=== PATIENT | female | born 1965 | race Caucasian/White ===

== ENCOUNTER 2016-08-03 05:06 | Day surgery (SDC) | payer BC ==
[~2016-08-03] VITALS: Ht 162.6 cm; Wt 59.9 kg
--- NOTE | ~2016-08-03 | O ---
[address] [address] OPERATIVE REPORT Name: LIONEL VICKERS Room #: 150-2 [facility]..#: [id number] Admission: 08/03/16 Attend Phys: Tony Fuentes MD Discharge: Date of : 63 Report #: [id number] THIS REPORT FOR: //name// CC: Levi Fuentes DATE OF SERVICE: 08/03/2016 SERVICE: Orthopedics. FACILITY: [facility]. SURGEON: Tony Fuentes MD. ASSISTANTS: None. PREOPERATIVE DIAGNOSES: 1. Right hip pain. 2. Right hip femoroacetabular impingement. 3. Right hip labral tear. POSTOPERATIVE DIAGNOSES: 1. Right hip pain. 2. Right hip femoroacetabular impingement. 3. Right hip labral tear. 4. Right hip chondromalacia. PROCEDURE: 1. Right hip arthroscopic subspine acetabuloplasty. 2. Right hip arthroscopic labral repair. 3. Right hip arthroscopic cam osteoplasty with capsular closure. COMPLICATIONS: None. DRAINS: None. SPECIMENS: None. ESTIMATED BLOOD LOSS: 5 mL. ANESTHESIA TYPE: General endotracheal with single shot regional nerve block. IV FLUIDS: 1 L. TRACTION TIME: One hour [address] [address] OPERATIVE REPORT Name: LIONEL VICKESR Room #: 150-2 [facility] Ranjana#: [id number] Admission: 08/03/16 Attend Phys: Tony Fuentes MD Discharge: Date of : 63 Report #: [id number] FINDINGS: 1. Grade 2 and 3 chondromalacia of the anterior superior portion of the acetabulum adjacent to the location of the cam deformity. 2. Labral repair performed with [employer] Nano[employer]ack anchor with tape x 4. 3. Capsular repair completed with #2 Vicryl x 3. HISTORY AND INDICATIONS: The patient is a 51-year-old female with a longstanding history of persistent right hip pain that was recalcitrant to conservative treatment. She had excessive amount of conservative measures including physical therapy, injections, medicines, rest, activity modification and soft tissue modalities but unfortunately none of these provided sufficient relief. She had radiographic evidence of femoroacetabular impingement, particularly with a large cam bump with alpha angle of approximately 70 degrees noted at the apex of the deformity. There was also MRI confirmation of labral tear and suggestion of some rim chondromalacia. Risks, benefits, alternatives and indications for surgery were discussed with her in detail. The risks include but not limited to pain, bleeding, infection, injury to nerves or blood vessels, persistent pain despite surgical intervention, failure of any repairs, reconstruction, progression of any preexisting chondral injury and complications related to anesthesia such as stroke, heart attack, pulmonary complications, thromboembolic disease and . Despite these risks, she wished to proceed. PROCEDURE IN DETAIL: After right lower extremity was correctly identified in the preoperative holding area as the operative extremity, the patient underwent placement of a single shot regional nerve block by the anesthesia team. She was then taken to the operating room and placed supine on operating table and general endotracheal anesthesia was induced without complication. All bony prominences and subcutaneous nerves were padded appropriately. Prophylactic antibiotics were administered at appropriate time. We placed bilateral lower extremities in traction boots and then brought the C-arm in to confirm that there was adequate distraction that could be applied across the hip as well as to map out the femoral head neck junction deformity and identify the extent of the cam lesion, which extended all the way across the anterior aspect of the femoral neck. Right lower extremity was then prepped and draped in usual standard sterile fashion. Time-out procedure was performed. Traction was applied in the right lower extremity. Total traction time was 74 minutes. Standard anterolateral viewing portal was established and then a mid anterior working portal and then transverse capsulotomy was performed. Fluoroscopic and arthroscopic visualization was performed for this portion of the procedure and then diagnostic arthroscopy revealed fraying at the chondral labral junction as well as softening of the articular cartilage in the anterior superior acetabulum. The labrum was torn as well and was loosely fixed to the acetabular rim, so it was felt that acetabular labral repair with chondroplasty [address] [address] OPERATIVE REPORT Name: VICKERSLIONEL Room #: 150-2 [facility] M..#: [id number] Admission: 08/03/16 Attend Phys: Tony Fuentes MD Discharge: Date of : 63 Report #: [id number] was most appropriate. We had had a discussion about labral reconstruction, but I felt that the labral tissue itself was high of quality for repair and I thought that the evidence of articular cartilage chondromalacia is likely contributing pain generator and that reconstruction was not the optimal treatment for her. Therefore, the capsule was reflected off the dorsal aspect of the labrum. There was noted to be an adhesion of the medial capsule to the labrum and this was released bluntly and then the labrum was dissected off of the acetabular rim. A abbey was used to provide minimal rim burring to allow for bleeding surface only without any rim resection performed. A subspine acetabuloplasty was used to recess the subspine region and then the acetabular labral repair was performed after a distal anterolateral accessory portal was established in standard technique. A total of 4 labral tape anchors were used with a mattress suture technique and then an anatomic repair was achieved. A shaver was then used to perform chondroplasty to smooth the loose softened cartilage at the acetabular labral rim and then the traction was let down. A T capsulotomy was created after traction stitches were applied x 2 in the distal limb of the transverse capsulotomy and then under arthroscopic visualization and fluoroscopic confirmation, a thorough cam osteochondroplasty was performed. Instruments were removed from the hip. X-rays were taken. There was an additional area laterally that needed to be resected. The scope was placed back in. The cam osteoplasty was completed. The bony debris was lavaged out of the hip and then a capsular repair performed with #2 Vicryl x 3. The instruments were removed from the hip. Arthroscopic effusion was drained. The final x-rays were taken and then the portal sites were closed with a deep followed by superficial 2-0 Monocryl suture. Sterile dressing was applied. The patient was awakened from anesthesia and taken to recovery room in stable condition. There were no complications. All counts were recorded as correct. <ELECTRONICALLY SIGNED> By: Tony Fuentes MD 08/03/16 1714 [id number] Tony Fuentes MD /nt
[~2016-08-03 05:06] MED LIST: AMBIEN 5 MG TABL5 M1 PO; GEODON40 MG PO; LITHIUM CARBON300 M7 PO; MULTIVITAMINS PO; TRAZODONE HCL50 MG PO; VIMOVO 500-201 EACH PO
[2016-08-03 07:15] VITALS: BP 120/66
[2016-08-03 11:31] VITALS: BP 120/66
== END 2016-08-03 12:00 | disposition home or self-care (01) ==
LOC: OR 05:06 → TBA 05:06 → OR 09:08
DX: M25.851 Other specified joint disorders, right hip (principal); M94.251 Chondromalacia, right hip; F41.9 Anxiety disorder, unspecified; F31.9 Bipolar disorder, unspecified; S73.101A Unspecified sprain of right hip, initial encounter; X58.XXXA Exposure to other specified factors, initial encounter; Y93.89 Activity, other specified; Y92.89 Other specified places as the place of occurrence of the external cause; Y99.8 Other external cause status; Z90.49 Acquired absence of other specified parts of digestive tract; Z98.890 Other specified postprocedural states
CPT/HCPCS: 50010; 50101; 50386; 50612; 51538; 55430; 56524; 56525; 56527; 57092; 62110; 62900; 70005